=== PATIENT | female | born 1995 | race Caucasian/White ===

== ENCOUNTER 2018-01-02 13:51 | Emergency (ER) | payer OTHER, MEDICAID ==
[~2018-01-02] VITALS: Ht 162.6 cm; Wt 68.0 kg
[~2018-01-02 13:51] MED LIST: AZITHROMYCIN 2250 MG PO; FLEXERIL PO; HYDROCODONE-AP1 EAC6 PO; IBUPROFEN 800800 M1 PO; TRAMADOL 50 MG50 MG PO; TYLENOL325 MG PO; ZOFRAN ODT4 M1 PO; ZOFRAN4 MG PO
[2018-01-02] MEDS ORDERED: AMOXICILLIN 50500 MG PO (14:36)
[2018-01-02] MEDS ORDERED: NABUMETONE 750750 M1 PO (14:36)
[2018-01-02] MEDS ORDERED: TRAMADOL 50 MG50 MG PO (14:36)
[2018-01-02 14:50] VITALS: BP 131/80
== END 2018-01-02 14:51 | disposition home or self-care (01) ==
LOC: M.ERS 13:51
DX: H66.91 Otitis media, unspecified, right ear (principal); J45.909 Unspecified asthma, uncomplicated; F17.210 Nicotine dependence, cigarettes, uncomplicated

== ENCOUNTER 2018-02-23 11:31 | Emergency (ER) | payer OTHER, MEDICAID ==
[~2018-02-23] VITALS: Ht 162.6 cm; Wt 72.6 kg
[~2018-02-23 11:31] MED LIST changes: +AMOXICILLIN 50500 MG PO; +NABUMETONE 750750 M1 PO
[2018-02-23 11:51] LABS: URINE BILIRUBIN NEGATIVE (Negative); URINE BLOOD 3+ (Negative); URINE CLARITY TURBID; URINE COLOR STRAW; URINE GLUCOSE-RANDOM NEGATIVE (Negative); URINE KETONES NEGATIVE (Negative); URINE LEUKOCYTES-REFLEX 1+ (Negative); URINE NITRITE-REFLEX NEGATIVE (Negative); URINE PROTEIN 2+ (Negative); URINE SPECIFIC GRAVITY 1.025 (1.005-1.030); URINE UROBILINOGEN 0.2 E.U./dl (0.2-1.0)
[2018-02-23 12:05] LABS: SQUAMOUS 4-10 Moderate /LPF (0-3); URINE WBC-REFLEX 6-15 Few /HPF (0-5); WBC CLUMPS Few (None Seen)
[2018-02-23 12:06] LABS: BACTERIA-REFLEX 1-9 Few /HPF (None Seen); MUCUS 4-6 Moderate strn/LPF (None Seen); URINE RBC >20 Many /HPF (0-2)
[2018-02-23 12:07] LABS: CASTS None Seen /LPF (None Seen); CRYSTALS None Seen /LPF (None Seen)
[2018-02-23] MEDS ORDERED: BACTRIM DS TAB1 EACH PO (12:25)
[2018-02-23 12:39] VITALS: BP 137/76
== END 2018-02-23 12:50 | disposition home or self-care (01) ==
LOC: M.ERS 11:31
PROVIDERS: Nurse Practitioner Family
DX: N39.0 Urinary tract infection, site not specified (principal); J45.909 Unspecified asthma, uncomplicated; F17.210 Nicotine dependence, cigarettes, uncomplicated